=== PATIENT | male | born 1990 | race Caucasian/White ===

== ENCOUNTER 2016-12-30 18:56 | Emergency (ER) | payer SELFPAY ==
--- NOTE | 2016-12-30 19:24 | ERPHSYRPT ---
- History of Present Illness Time Seen by Provider: 12/30/16 19:21 Patient Subjective Stated Complaint: pt here for toothache to bottom back of jaw for 2 days now, no fever, took advil at home Triage Nursing Assessment: pt alert, anxious, has swelling to lower jaw Allergies/Adverse Reactions: Sulfa (Sulfonamide Antibiotics) Allergy (Verified 12/30/16 19:04) Home Medications: No Reportable Medications [No Reported Medications] 12/30/16 [History] Hx Tetanus, Diphtheria Vaccination/Date Given: Yes (2014) Hx Pneumococcal Vaccination/Date Given: No Immunizations Up to Date: Yes - Past Medical History Pertinent Past Medical History: Yes Other Medical History: tubes in ears - Past Surgical History Past Surgical History: No - Social History Smoking Status: Former smoker Exposure to second hand smoke: Yes Drug Use: none Patient Lives Alone: No - Nursing Vital Signs Nursing Vital Signs: Initial Vital Signs Temperature Source Oral Pain Intensity 8 - Physical Exam Oxygen Delivery: Room Air - Progress Progress Note: 12/30/16 19:23 MD was in room with a critical patient. Detective And Intelligence Analyst checked on pt and stated he was agitated and tearing the room up. When MD went to room patient was gone. LWBS. Registration saw him go to parking lot. Police were called by staff. - Departure Time of Disposition: 19:23 Departure Disposition: Left without being seen Clinical Impression: Patient left without being seen Condition: Stable Critical Care Time: No
== END 2016-12-30 19:23 | disposition left against medical advice (07) ==
LOC: ED 18:56
DX: K08.89 Other specified disorders of teeth and supporting structures (principal)
CPT/HCPCS: G0463